=== PATIENT | female | born 1975 | race Hispanic/Latino ===

== ENCOUNTER 2019-05-04 14:57 | Emergency (ER) | payer SELFPAY ==
--- NOTE | 2019-05-04 17:43 | CT ---
Exam: CT brain PROVIDED CLINICAL HISTORY: Head injury COMPARISON: None FINDINGS: The ventricular system is normal in size and morphology. No evidence for intracranial hemorrhage or mass effect. Frontal scalp swelling without evidence for skull fracture. IMPRESSION: No evidence for intracranial hemorrhage or mass effect.
--- NOTE | 2019-05-04 17:44 | CT ---
EXAM: CT cervical spine PROVIDED CLINICAL HISTORY: Trauma COMPARISON: None FINDINGS: No evidence for fracture or traumatic subluxation. No prevertebral soft tissue swelling apparent. Vi sualized lung apices appear clear. IMPRESSION: No evidence for fracture or traumatic subluxation.
[2019-05-04] MEDS ORDERED: Lidocaine 1% PF 5 ML VIAL ONE ×2 (18:12→19:03)
[2019-05-04] MEDS ORDERED: Ketorolac Tromethamine 30 MG/ML VIAL ONE (18:12)
[2019-05-04] MEDS ORDERED: Adacel (T-DAP) 0.5 ML SYRINGE ONE (18:12)
--- NOTE | 2019-05-04 18:17 | RAD ---
EXAM: XR Thoracic Spine 3 V STANDARD PROVIDED CLINICAL HISTORY: Pain status post injury COMPARISON: None FINDINGS: Thoracic alignment appears normal. Vertebral body heights appear preserved. Discogenic degenerative c hanges are seen. IMPRESSION: No radiographic evidence for an acute osseous abnormality.
== END 2019-05-04 19:20 | disposition home or self-care (01) ==
LOC: ERS 14:57
DX: S09.90XA Unspecified injury of head, initial encounter (principal); S01.01XA Laceration without foreign body of scalp, initial encounter; Z23 Encounter for immunization; W01.198A Fall on same level from slipping, tripping and stumbling with subsequent striking against other object, initial encounter; Y92.59 Other trade areas as the place of occurrence of the external cause
CPT/HCPCS: 12002; 70450; 72072; 72125; 90471; 90715; 96372; J1885; J2001; L0120

== ENCOUNTER 2022-09-13 15:14 | Emergency (ER) | payer OTHER, SELFPAY ==
[2022-09-13] MEDS ORDERED: Acetaminophen 500 MG TAB ONE (17:27)
[2022-09-13] MEDS ORDERED: Ketorolac Tromethamine 30 MG/ML VIAL ONE (18:18)
== END 2022-09-13 18:30 | disposition home or self-care (01) ==
LOC: ERS 15:14
DX: S09.90XA Unspecified injury of head, initial encounter (principal); E78.2 Mixed hyperlipidemia; W22.8XXA Striking against or struck by other objects, initial encounter; Z79.899 Other long term (current) drug therapy
CPT/HCPCS: 96372; 99283; J1885